=== PATIENT | male | born 1980 | race Caucasian/White ===

== ENCOUNTER 2018-04-11 10:32 | Emergency (ER) | payer SELFPAY ==
[~2018-04-11] VITALS: Ht 185.4 cm; Wt 89.1 kg
[2018-04-11 11:10] VITALS: BP 188/90
--- NOTE | 2018-04-11 11:10 | NUR ---
Patient discharged to home in stable condition. Written and verbal after care instructions given. Patient verbalizes understanding of instruction.
== END 2018-04-11 11:12 | disposition home or self-care (01) ==
LOC: ER 10:34
DX: S00.83XA Contusion of other part of head, initial encounter (principal); I10 Essential (primary) hypertension; W01.0XXA Fall on same level from slipping, tripping and stumbling without subsequent striking against object, initial encounter; Y93.89 Activity, other specified; Y92.89 Other specified places as the place of occurrence of the external cause; Y99.8 Other external cause status
CPT/HCPCS: A4606; Z7610